=== PATIENT | male | born 1990 | race Caucasian/White ===

== ENCOUNTER 2021-10-22 20:39 | Emergency (ER) | payer SELFPAY ==
[~2021-10-22] VITALS: Ht 170.2 cm; Wt 81.0 kg
[2021-10-22] MEDS ORDERED: TRANEXAMIC ACID 1,000 MG/10 ML TP ONE (22:45)
[2021-10-23] MEDS ORDERED: SILVER NITRATE APPLICATOR STICK TOP ONE (00:15)
[2021-10-23] MEDS ORDERED: SODIUM CHLORIDE 0.9% 1,000 ML IV ONE (00:15)
[2021-10-23] MEDS ORDERED: CEFAZOLIN 1000MG PREMIX 50 ML IV ONE ×2 (01:15)
[2021-10-23] MEDS ORDERED: SULF1TAB47 MT (01:44)
[2021-10-23] MEDS ORDERED: CEPH500C2 MT (01:44)
[2021-10-23 02:41] LABS: BASOPHILS % 0.2 % (0.0-2.0); EOSINOPHILS % 0.1 % (0.0-5.0); HEMATOCRIT. 40.4 % (42.0-52.0); HEMOGLOBIN. 13.5 g/dL (14.0-18.0); LYMPHOCYTES % 11.6 % (20.0-50.0); MEAN CORPUSCULAR HEMOGLOBIN 29.9 pg (28.0-32.0); MEAN CORPUSCULAR VOLUME 89.2 fL (80.0-94.0); MEAN PLATELET VOLUME 7.6 fl (7.4-10.4); MONOCYTES % 6.6 % (2.0-8.0); NEUTROPHILS % 81.5 % (40.0-76.0); PLATELET 254 x1000/uL (130-400); RED BLOOD CELL COUNT 4.53 mill/uL (4.7-6.1); RED CELL DISTRIBUTION WIDTH 13.3 % (11.6-14.6)
[2021-10-23] MEDS ORDERED: MORPHINE SULFATE 4 MG/ML CPJ (NOT FOR IM USE) IV ONE (02:45)
[2021-10-23] MEDS ORDERED: MORPHINE SULFATE 2 MG/ML CPJ (NOT FOR IM USE) IV ONE (04:15)
[2021-10-23] MEDS ORDERED: ONDANSETRON HCL 4MG/2ML INJ IV NR (05:15)
[2021-10-23 12:00] VITALS: BP 128/74
[2021-10-25 07:11] LABS: LIDOCAINE None Detected ug/mL (1.5-5.0)
== END 2021-10-23 12:09 | disposition home or self-care (01) ==
LOC: ER 20:39
DX: S01.01XA Laceration without foreign body of scalp, initial encounter (principal); Y08.89XA Assault by other specified means, initial encounter; Y93.89 Activity, other specified; Y92.89 Other specified places as the place of occurrence of the external cause; Y99.8 Other external cause status; Z20.822 Contact with and (suspected) exposure to COVID-19
CPT/HCPCS: 36415; 70450; 70486; 80176; 85025; 86850; 86900; 86901; 87426; 96361; 96365; 96375; 96376; 99285; J0690; J2270; J2405; J7030